=== PATIENT | male | born 2000 | race American Indian/Alaskan Native ===

== ENCOUNTER 2019-08-12 10:56 | Outpatient (CLI) | payer OTHER ==
--- NOTE | 2019-08-12 12:06 | Magnetic Resonance Report ---
MRI LUMBAR SPINE WITHOUT CONTRAST INDICATION / CLINICAL INFORMATION: M54.5 LOW BACK PAIN. TECHNIQUE: Multisequence, multiplanar images of the lumbar spine were obtained. COMPARISON: None available. FINDINGS: ALIGNMENT: Normal lumbar lordosis without significant scoliosis. VERTEBRAE:Normal marrow signal and vertebral body height for age. VISUALIZED SPINAL CORD: No significant abnormality. The conus terminates at the inferior endplate of L1. [id number] ANALYSIS: L1-2: No significant abnormality. L2-3: No significant abnormality. L3-4: No significant abnormality. L4-5: No significant abnormality. L5-S1: Minimal disc space narrowing and disc desiccation is detected. A moderate broad-based central disc protrusion is identified which mildly displaces the anterior thecal sac. No mass effect on nerve roots. No central canal or neural foraminal stenosis. Minimal arthritic changes are noted at the fac et joints. No hypertrophic changes. PARASPINAL SOFT TISSUES: No significant abnormality. ADDITIONAL FINDINGS: None. IMPRESSION: Broad-based midline disc protrusion at L5-S1 without significant mass effect. Early degenerative ch anges at L5-S1. Signer Name: Moise Kennedy Jr, MD Signed: 08/12/2019 12:01 PM Workstation Name: [id number]
== END 2019-08-12 10:57 | disposition home or self-care (01) ==
LOC: MRI 10:56
PROVIDERS: ATTEND Orthopaedic Surgery
DX: M47.817 Spondylosis without myelopathy or radiculopathy, lumbosacral region (principal)
CPT/HCPCS: 72148